=== PATIENT | male | born 1970 | race Caucasian/White ===

== ENCOUNTER 2019-05-30 22:47 | Emergency (ER) | payer BC, SELFPAY ==
[2019-05-30 23:03] VITALS: BP 124/81; PULSE 68; RESP 16; TEMP 36.2; O2SAT 95
--- NOTE | 2019-05-30 23:20 | ED.GENADUL_ITS ---
Discharge Plan Disposition Patient Disposition: HOME Condition: Good Discharge Details Chief Complaint: Laceration Clinical Impression: Laceration Primary Care Provider: NERI NULL ED Provider: Sathish Her Home Meds and New Rx's Prescriptions: New cephalexin [Keflex] 500 mg capsule 500 mg PO QID 7 Days Qty: 28 RF: 0 Discharge Instructions Instructions: Laceration (ED) Additional Instructions: You have your ankle, and it is slightly superficial, however because of the timing since when he first cut it suturing is not advised. We have placed glue and Steri-Strips to help retain his strength. Please do not bend your ankle at all for the next 5 to 7 days to allow the skin to heal. Do not submerge your foot at all in the water, keep it dry for the next 72 hours. Change the dressing daily. Watch for any signs of infection and return if any increasing redness, swelling, pain, drainage. If you notice any worsening of your symptoms, or any new symptoms such as vomiting, diarrhea, fever, chills, shortness of breath, chest pain, numbness, weakness, or fainting , please return immediately to the emergency department for reevaluation. Please follow up with your primary care provider as soon as possible for reassessment and reevaluation. As always, it was a pleasure participating in your medical care today. Referrals: NERI NULL [Primary Care Provider] - Medical Decision Making This is a pleasant 49-year-old male who presents today for evaluation of laceration to his right posterior heel. Notably superficial. It occurred greater than 12 hours ago while at his camp. And fortunately few hours ago he hit it again which caused some bleeding. Exam demonstrates a superficial laceration that is 3 cm in linear and horizontal in nature. No evidence of deep tendon involvement. No active bleeding at this time. Normal plantar flexion dorsiflexion, no evidence of Achilles tendon damage. Because of the notable delay that it took for the patient come in for evaluation I do not feel that suturing is necessarily appropriate, especially in conjunction with a notably superficial component. The area was cleaned and irrigated copious amounts of normal saline and chlorhexidine. The chlorhexidine scrub was then used to make sure all dirt debris was removed. The area was then Dermabond and Steri-Strips were applied. Patient tolerated this well. We did discuss walking boot to prevent any significant flexion, however the patient does not want to wear this at this time. We recommended the importance of maintaining his ankle at 90 degrees without any significant flexion extension he understands. We discussed red flags which return. As a precaution secondary to the slightly dirty nature of the wound we will give Keflex here and a prescription for home use. I have extensively reviewed the treatment plan and discharge instructions with the patient. I have addressed all patient concerns at this time. The patient was made aware of what symptoms to monitor for that would warrant a return to the emergency department. Discussed the plan with the patient, they demonstrate verbal understanding and agreement with our assessment and plan at this time. HPI General Date/Time Provider Initiated Documentation: 05/30/19 22:56 . HPI Narrative: This is a pleasant 49-year-old male with no significant past medical history whose tetanus is not up-to-date who presents today for evaluation of laceration to his right heel. Over 12 hours ago earlier today he cut the back aspect of his heel at his camp on the leg. He did wash it at that time, and is medically inclined applied Steri-Strips and bandaging. This is been doing well until he had it again which led to subsequent bleeding. He denies any pain, discharge, or weakness in the foot. He denies any numbness or tingling. He came for further evaluation and assessment. He denies any other modifying factors. No other complaints at this time. Related Data Home Medications Medication Instructions Recorded Confirmed cephalexin [Keflex] 500 mg PO QID 7 Days #28 cap 05/30/19 Previous Rx's Medication Instructions Recorded cephalexin [Keflex] 500 mg PO QID 7 Days #28 cap 05/30/19 Allergies Allergy/AdvReac Type Severity Reaction Status Date / Time No Known Allergies Allergy Unverified 05/30/19 23:09 General Stated Complaint: Laceration MARITA: 4 Review of Systems Review of Systems All systems reviewed & are unremarkable except as noted in HPI and below [facility] Medical History (Updated 05/30/19 @ 23:09 by Kerrie Cr) No acute medical problems (Acute) Social History Smoking/Tobacco Use Status: Never Alcohol Intake: current Alcohol Intake frequency: a few times a week Drug use: Never Substance use type: does not use Do you feel safe at home: Yes Do you feel safe in your relationship?: Yes Exam Narrative Exam Narrative: 1.Const: Well-nourished, Well-developed, appearing stated age 2.Eyes: PERRL, no conjunctival injection, and symmetrical lids. 3.ENT: Atraumatic external nose and ears. Moist MM. Neck: Symmetric, trachea midline, No thyromegaly. 4.CVS: +S1/S2, No murmurs or gallops. Peripheral pulses 2+ and equal in all extremities. Brisk capillary refill in all extremities. 5.RESP: Unlabored respiratory effort. Clear to auscultation bilaterally. No wheezes rales or rhonchi 6.GI: Soft, Nontender/Nondistended, No hepatosplenomegaly. No guarding or rebound. 7.MSK: Normocephalic/Atraumatic, Extremities w/o deformity or ttp No cyanosis or clubbing, Normal movement of all extremities. Achilles tendon is intact, no evidence of demonstrates tendon. Normal strength with dorsiflexion plantarflexion. Normal sensation throughout, brisk capillary refill. Normal flexion and extension of all toes and aspects of the foot. 8.Skin: Warm, Dry. No rashes or lesions. Small 3 cm linear laceration to the posterior heel. Evaluation of the skin demonstrates notably superficial laceration, no involvement in the deep tendon or osseous structures. No active bleeding. 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 Sensation grossly intact, no focal neurologic deficits. 10.Psych: (AAO) x3. Appropriate mood and affect Course Vital Signs Temperature 36.2 C L 05/30/19 23:03 Pulse 68 05/30/19 23:03 Respiratory Rate 16 05/30/19 23:03 Blood Pressure 124/81 05/30/19 23:03 Pulse Oximetry 95 05/30/19 23:03 Temperature 36.2 C L 05/30/19 23:03 Temperature Source Skin 05/30/19 23:03 Pulse 68 05/30/19 23:03 Respiratory Rate 16 05/30/19 23:03 Respiratory Effort Non-Labored 05/30/19 23:09 Blood Pressure 124/81 05/30/19 23:03 Pulse Oximetry 95 05/30/19 23:03 Pain Level 5 05/30/19 23:03
[2019-05-30] MEDS: Cephalexin 500 MG CAP PO (23:40)
[2019-05-30 23:42] VITALS: BP 124/81; PULSE 68; RESP 16; TEMP 36.7; O2SAT 95
== END 2019-05-30 23:36 | disposition home or self-care (01) ==
PROVIDERS: Emergency Provider Student in an Organized Health Care Education/Training Program; PCP Family Medicine
DX: S91.311A Laceration without foreign body, right foot, initial encounter (principal); W45.8XXA Other foreign body or object entering through skin, initial encounter
CPT/HCPCS: 12002; 90471; 99283